=== PATIENT | male | born 1990 | race American Indian/Alaskan Native ===

== ENCOUNTER 2017-07-07 19:58 | Emergency (ER) | payer BC ==
[2017-07-07 20:06] VITALS: BP 127/82
[2017-07-07] MEDS ORDERED: DUONEB *Not for PRN Use IH ONE ×2 (20:56→21:27)
--- NOTE | 2017-07-07 20:58 | Emergency Department Report ---
Chief Complaint: Dyspnea/Respdistress Stated Complaint: LOC - HPI History of Present Illness: 27 yo male presents s/p syncopal episode. He has felt lightheaded after being exposed to insect spray earlier in the day. Now has mild chest pain and tongue feels heavy. - Exam Vital Signs: Vital Signs 07/07/17 20:02 Temperature 98.3 F Pulse Rate 90 Respiratory 18 Rate Blood Pressure 127/82 [Left] O2 Sat by Pulse 100 Oximetry MSE screening note: Focused history and physical exam performed. Due to findings the following was ordered: ED Disposition for MSE Condition: Stable Referrals: PRIMARY CARE, [Primary Care Provider] - 3-5 Days
[2017-07-07] MEDS ORDERED: DELTASONE PO ONE (21:38)
--- NOTE | 2017-07-07 21:44 | Emergency Department Report ---
ED General Adult HPI - General Chief complaint: Dyspnea/Respdistress Stated complaint: LOC Time Seen by Provider: 07/07/17 21:28 Source: patient Mode of arrival: Ambulatory Limitations: No Limitations - History of Present Illness Initial comments: 27 yo male presents s/p syncopal episode. He has felt lightheaded after being exposed to insect spray earlier in the day. Now has mild chest pain and tongue feels heavy. Onset/Timin -: hour(s) Location: chest Radiation: non-radiation Severity scale (0 -10): 2 Quality: other (wheezing sob ) Consistency: intermittent Improves with: rest, other (nebs) Worsens with: none Associated Symptoms: shortness of breath, syncope. denies: confusion, chest pain, cough, diaphoresis, fever/chills, headaches, loss of appetite, malaise, nausea/vomiting, rash, seizure, weakness Treatments Prior to Arrival: none - Related Data Previous Rx's Medication Instructions Recorded Last Taken Type ALBUTEROL Inhaler [ProAir HFA 2 puff IH QID PRN #1 inhalation 07/07/17 Unknown Rx Inhaler] Metoclopramide [Reglan] 10 mg PO ACHS #30 tablet 07/07/17 Unknown Rx diphenhydrAMINE [Benadryl CAP] 25 mg PO Q6HR PRN #30 capsule 07/07/17 Unknown Rx predniSONE [Deltasone] 40 mg PO QDAY #10 tab 07/07/17 Unknown Rx Allergies Allergy/AdvReac Type Severity Reaction Status Date / Time Penicillins Allergy Unknown Verified 07/07/17 20:02 ED Review of Systems ROS: Stated complaint: LOC Other details as noted in HPI Constitutional: denies: chills, fever Eyes: denies: eye pain, eye discharge, vision change ENT: denies: ear pain, throat pain Respiratory: shortness of breath, SOB with exertion, wheezing. denies: cough, SOB at rest Cardiovascular: syncope. denies: chest pain, palpitations, dyspnea on exertion , orthopnea, paroxysmal nocturnal dyspnea Endocrine: no symptoms reported Gastrointestinal: denies: abdominal pain, nausea, vomiting, diarrhea Genitourinary: denies: urgency, dysuria Musculoskeletal: denies: back pain, joint swelling, arthralgia Skin: denies: rash, lesions Neurological: denies: headache, weakness, paresthesias Psychiatric: denies: anxiety, depression Hematological/Lymphatic: denies: easy bleeding, easy bruising ED Past Medical Hx - Past Medical History Previous Medical History?: Yes Hx Asthma: Yes - Surgical History Past Surgical History?: No - Medications Home Medications: Home Medications Medication Instructions Recorded Confirmed Last Taken Type ALBUTEROL Inhaler [ProAir HFA 2 puff IH QID PRN #1 inhalation 07/07/17 Unknown Rx Inhaler] Metoclopramide [Reglan] 10 mg PO ACHS #30 tablet 07/07/17 Unknown Rx diphenhydrAMINE [Benadryl CAP] 25 mg PO Q6HR PRN #30 capsule 07/07/17 Unknown Rx predniSONE [Deltasone] 40 mg PO QDAY #10 tab 07/07/17 Unknown Rx ED Physical Exam - General Limitations: No Limitations - Head Head exam: Present: atraumatic, normocephalic - Eye Eye exam: Present: normal appearance, PERRL, EOMI Pupils: Present: normal accommodation - ENT ENT exam: Present: normal orophraynx, mucous membranes moist, TM's normal bilaterally, normal external ear exam - Neck Neck exam: Present: normal inspection, full ROM. Absent: tenderness, meningismus, lymphadenopathy, thyromegaly - Respiratory Respiratory exam: Present: wheezes (mild exp wheezes bialt ). Absent: respiratory distress, rales, rhonchi, stridor, chest wall tenderness, accessory muscle use, prolonged expiratory - Cardiovascular Cardiovascular Exam: Present: regular rate, normal rhythm, normal heart sounds. Absent: systolic murmur, diastolic murmur, rubs, gallop - GI/Abdominal GI/Abdominal exam: Present: soft, normal bowel sounds. Absent: distended, tenderness, guarding, rebound, rigid, organomegaly, mass, bruit, pulsatile mass , hernia - Rectal Rectal exam: Present: deferred - Extremities Exam Extremities exam: Present: normal inspection - Back Exam Back exam: Present: normal inspection, full ROM. Absent: tenderness, CVA tenderness (R), CVA tenderness (L), muscle spasm, paraspinal tenderness, vertebral tenderness, rash noted - Neurological Exam Neurological exam: Present: alert, oriented X3 - Psychiatric Psychiatric exam: Present: normal affect, normal mood - Skin Skin exam: Present: warm, dry, intact, normal color. Absent: rash ED Course Vital Signs 07/07/17 20:02 Temperature 98.3 F Pulse Rate 90 Respiratory 18 Rate Blood Pressure 127/82 [Left] O2 Sat by Pulse 100 Oximetry ED Medical Decision Making - Medical Decision Making 27 yo male presents s/p syncopal episode. He has felt lightheaded after being exposed to insect spray earlier in the day. Now has mild chest pain and tongue feels heavy. pt refuses ekg, cxr , states symptoms improved with neb treatment pt appears well lungs mild exp wheezes bilat ent: tms normal nose patent no swelling no polyps no obstruction phayrnx: no swelling no erythema no exudate uvula midline no stidor, cv: s1 and s2 no mrg, pt ambulated entire ed and back to room without increased sob, plan: dc to home with albuterol, prednisone, benadry, reglan, pt given strict instruction to follow up pcp or return immediately to ed if symptoms worsen pt verbalized agreement and understanding with same. Critical care attestation.: If time is entered above; I have spent that time in minutes in the direct care of this critically ill patient, excluding procedure time. ED Disposition Clinical Impression: Near syncope Disposition: DC-01 TO HOME OR SELFCARE Is pt being admited?: No Does the pt Need Aspirin: No Condition: Good Instructions: Near Syncope (ED) Prescriptions: ALBUTEROL Inhaler [ProAir HFA Inhaler] 2 puff IH QID PRN #1 inhalation PRN Reason: Shortness Of Breath diphenhydrAMINE [Benadryl CAP] 25 mg PO Q6HR PRN #30 capsule PRN Reason: itching allergy symptoms Metoclopramide [Reglan] 10 mg PO ACHS #30 tablet predniSONE [Deltasone] 40 mg PO QDAY #10 tab Referrals: PRIMARY CAREMD [Primary Care Provider] - 3-5 Days GRZEGORZ LI MD [Staff Physician] - 3-5 Days Forms: Work/School Release Form(ED) Time of Disposition: 22:00
== END 2017-07-07 22:08 | disposition home or self-care (01) ==
LOC: ED 19:58
DX: R55 Syncope and collapse (principal); J45.909 Unspecified asthma, uncomplicated
CPT/HCPCS: 99283; J7512